=== PATIENT | female | born 2005 | race Caucasian/White ===

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

== ENCOUNTER 2025-05-18 21:18 | Emergency (ER) | payer MEDICAID, OTHER ==
[~2025-05-18] VITALS: Ht 160 cm; Wt 55.6 kg
[2025-05-18] MEDS ORDERED: PNV1TABL16 PO (21:31)
[2025-05-18 23:22] VITALS: BP 108/68; TEMP 97.7; O2SAT 97
== END 2025-05-18 23:47 | disposition left against medical advice (07) ==
LOC: M ED 21:18
DX: Z53.21 Procedure and treatment not carried out due to patient leaving prior to being seen by health care provider (principal)

== ENCOUNTER → 2025-06-19 | Outpatient (CLI) | payer OTHER ==
[~2025-06-19] MED LIST changes: +PNV1TABL16 PO
[2025-06-19 13:31] LABS: PLATELET COUNT, AUTOMATED 275 10^3/uL (150-450)
[2025-06-19 13:59] LABS: HIV 1&2 SCREEN NEGATIVE (NEGATIVE)
[2025-06-19 14:08] LABS: HEPATITIS C VIRUS ABY INDEX 0.10 INDEX (<0.8)
[2025-06-19 14:42] LABS: Trichomonas vaginalis (AMP) NOT DETECTED (NEGATIVE)
[2025-06-19 15:08] LABS: GC DNA AMPLIFICATION NEGATIVE (NEGATIVE)
== END ==
LOC: M PLALAB 11:21
PROVIDERS: ATTEND Advanced Practice Midwife
DX: Z34.02 Encounter for supervision of normal first pregnancy, second trimester (principal); Z3A.00 Weeks of gestation of pregnancy not specified

== ENCOUNTER → 2025-07-08 | Outpatient (CLI) | payer OTHER | LOC: M RAD 10:06 | PROVIDERS: ATTEND Advanced Practice Midwife | DX: Z34.02 Encounter for supervision of normal first pregnancy, second trimester (principal); Z3A.21 21 weeks gestation of pregnancy ==

== ENCOUNTER → 2025-08-14 | Outpatient (CLI) | payer OTHER ==
[2025-08-14 14:02] LABS: GLUCOSE CHALLENGE TEST 1 HOUR 132 MG/DL (LESS THAN 140)
[2025-08-14 14:07] LABS: PLATELET COUNT, AUTOMATED 321 10^3/uL (150-450)
[2025-08-14 14:41] LABS: HIV 1&2 SCREEN NEGATIVE (NEGATIVE)
[2025-08-14 14:49] LABS: HEPATITIS C VIRUS ABY INDEX < 0.02 INDEX (<0.8)
[2025-08-14 15:44] LABS: Trichomonas vaginalis (AMP) NOT DETECTED (NEGATIVE)
[2025-08-14 16:07] LABS: GC DNA AMPLIFICATION NEGATIVE (NEGATIVE)
== END ==
LOC: M PLALAB 09:37
PROVIDERS: ATTEND Nurse Practitioner Family
DX: Z34.80 Encounter for supervision of other normal pregnancy, unspecified trimester (principal)

== ENCOUNTER → 2025-09-19 | Outpatient (CLI) | payer OTHER ==
[2025-09-19 13:25] LABS: PLATELET COUNT, AUTOMATED 262 10^3/uL (150-450)
== END ==
LOC: M PLALAB 10:24
PROVIDERS: ATTEND Obstetrics & Gynecology
DX: O99.013 Anemia complicating pregnancy, third trimester (principal); Z3A.00 Weeks of gestation of pregnancy not specified

== ENCOUNTER 2025-09-20 14:33 | Emergency (ER) | payer OTHER | END 2025-09-20 14:37 | disposition admitted as inpatient to this hospital (09) | LOC: M ED 14:33 | DX: Z53.21 Procedure and treatment not carried out due to patient leaving prior to being seen by health care provider (principal) ==

== ENCOUNTER 2025-09-20 14:41 | Outpatient (CLI) | payer OTHER ==
[~2025-09-20] VITALS: Ht 160 cm; Wt 70.9 kg
[2025-09-20 14:57] VITALS: BP 121/69
== END 2025-09-20 15:55 | disposition home or self-care (01) ==
LOC: M LDO 14:41
PROVIDERS: ATTEND Advanced Practice Midwife
DX: O36.8130 Decreased fetal movements, third trimester, not applicable or unspecified (principal); O99.013 Anemia complicating pregnancy, third trimester; D50.9 Iron deficiency anemia, unspecified; Z3A.33 33 weeks gestation of pregnancy
CPT/HCPCS: 59025; G0463